=== PATIENT | female | born 1960 | race Caucasian/White ===

== ENCOUNTER 2021-05-03 01:47 | Day surgery (SDC) | payer BC, SELFPAY ==
[2021-04-27 14:46] VITALS: BMI 22.7
--- NOTE | 2021-04-27 14:54 | PC.NURSE ---
Report to the Outpatient Waiting Room, entrance under the green pavilion located off [facility], at time 0600_ on date _05/03/21 . OR Time: . - You and your visitor will be asked a series of questions to screen for COVID 19 for your protection. - A mask is required within the hospital. Preoperative COVID Testing Requirements: No COVID Test needed if: (proof is required; if not received patient will have Rapid Test prior to entry) - Patient has received COVID Vaccine at least 14 days prior to procedure date or - Patient has positive COVID test result within last 90 days of surgery date. COVID Test needed if above criteria is not met If not COVID vaccinated a COVID test must be conducted within 72 hours of surgery and patient is asked to isolate self from time of testing until procedure. You will go to the [facility] for your COVID testing. The [facility] is located at the corner of [address] [facility]. You will only be called if COVID results are positive and your surgeon may reschedule your elective surgery date. Patients may have clear liquids (water, carbonated beverages, clear teas, apple juice) until 3 hours prior to surgery with a maximum of 20 ounces. - No food from midnight until time of surgery - Infants may have breast milk until 4 hours before surgery, formula 6 hours prior to surgery. - Children will be allowed to drink immediately following surgery. If applicable, please bring a bottle or sippy cup to assist with drinking. Juice, water, soda, and popsicles are readily available. For infants on formula, please bring formula the day of surgery. Pacifiers are allowed. Take the following medications with a SIP of water the morning of surgery: __GEODON, CITALOPRAM Medications to discontinue per physician VIT. SUPPLEMENTS Date to take last dose 22/09/21 Please no make-up, nail uzbek, hairspray, perfume, deodorant, or body powder the day of surgery. No jewelry (including any body piercings) or valuables the day of surgery, leave them at home. Please take a shower or bath the night before, or the morning of, surgery with an antibacterial soap. Wear comfortable, loose fitting clothing. Children are encouraged to wear pajamas. - Jewelry must be removed prior to entering the operating room. Rings and piercings that are not removed may be cut off. - The hospital will not accept responsibility for valuables. - Please leave all valuables, including medications, at home the day of surgery. If you are going home after surgery, a licensed drivers' cash clerk must drive you home. - NO public transportation without another adult. - We recommend that an adult stay with you for 24 hours following discharge. - We also recommend that you do not drive, make important decision, drink alcoholic beverages, or take any drugs that were not prescribed by your health care provider for at least 24 hours after your discharge time. For Pediatric surgeries, we recommend two adults accompany the child home (only one inside the building at this time). One visitor will be allowed to accompany the patient into the hospital. Patients visitor will be instructed to remain with patient at all times or leave the building. We will allow the visitor to come back to the postoperative area when patient is ready. Follow any additional instructions given to you from your surgeon. Telephone instructions given to PATIENT and asked if any additional questions and then verbalized understanding. Patient advised to call surgeon office or pre surgery nurse liaison [phone] if any additional questions.
--- NOTE | 2021-05-02 12:24 | P.PNAN_ITS ---
Anes - Initial Pre Proc Eval Procedure: Operation Date: 05/03/21 07:30 Proposed Procedures p Hysteroscopy Dilation and Curettage - Virgilio Mitchell MD Date/Time: 05/02/21 12:24 Surgeon: Virgilio Mitchell MD Pre Op Diagnosis: post menopausal bleeding Patient Data Age: 60 Gender: F Height: 1.65 m Weight: 62 kg Allergies Allergy/AdvReac Type Severity Reaction Status Date / Time No Known Allergies Allergy Verified 04/27/21 14:39 Home Medications Medication Instructions Recorded Confirmed Type citalopram 10 mg PO DAILY 04/27/21 05/03/21 History ergocalciferol (vitamin D2) 50,000 unit PO WEEKLY 04/27/21 05/03/21 History omega 4-onx-izv-fish-turmeric 1,500 cap PO DAILY 04/27/21 04/27/21 History [[place] MonoPure Curcumin EC] sodium chloride [Hussain 128] 1 drp EACH EYE BID 04/27/21 05/03/21 History ziprasidone HCl 80 mg PO DAILY 04/27/21 05/03/21 History acetaminophen 1,000 mg PO Q6H PRN 05/03/21 05/03/21 History Patient hx anesthesia problems: none Family hx anesthesia problems: none Results Review: All pre-operative results and documents have been reviewed as part of the pre-operative evaluation. [facility] Past Medical History Medical History (Updated 05/02/21 @ 12:25 by Randolph Jiménez MD) Anxiety Breast CA Depression Social History Social History Smoking packs per day: 0.5 Smoking cigarettes per day: 10.0 Years smoked: 10 Smoking pack-years: 5.00 Smoking status: Former smoker Alcohol intake: former Living arrangements: alone Anes - Eval Final PreProcedure Day of Procedure 05/02/21 12:24 Patient weight: normal Heart: regular rate and rhythm Lungs: clear to auscultation and normal air movement Airway: Mallampati scale class II Neurological: alert and oriented Last oral intake: >/= 8 hours ASA classification: III Emergent: no Anesthetic plan: proceed Anesthesia type and monitoring: general GIVS and LMA Results Review: All pre-operative results and documents have been reviewed as part of the pre-operative evaluation. Informed Consent: The patient's anesthetic plan and its attendant risks and benefits were discussed with the patient/family/POA. Questions were solicited and answers provided to the satisfaction of the patient/family/POA.
[2021-05-03 06:26] VITALS: BP 125/86; PULSE 68; RESP 20; TEMP 36.2; O2SAT 99
[2021-05-03] MEDS: LACTATED RINGERS 1,000 ML 30 ML IV CONT (07:00)
--- NOTE | 2021-05-03 07:04 | P.HP_ITS ---
H&P: HPI History of Present Illness Date/Time: 05/03/21 07:04 60-year-old female presents for evaluation irregular vaginal bleeding. She had bleeding episodes over the past few months after being menopausal many years. Has also been on tamoxifen for breast cancer which also was stopped within the last year. Has no other pain or discomfort. Ultrasound does reveal slightly thickened endometrial cavity with multiple fibroids. Chief Complaint: Postmenopausal bleeding Review of Systems Review of Systems: All systems reviewed & are unremarkable except as noted in HPI and below PMFSH Past Medical History Medical History Anxiety Breast CA Depression Social History Social History Smoking packs per day: 0.5 Smoking cigarettes per day: 10.0 Years smoked: 10 Smoking pack-years: 5.00 Smoking status: Former smoker Alcohol intake: former Living arrangements: alone Meds Home Medications and Allergies Home Medications Medication Instructions Recorded Confirmed Type citalopram 10 mg PO DAILY 04/27/21 05/03/21 History ergocalciferol (vitamin D2) 50,000 unit PO WEEKLY 04/27/21 05/03/21 History omega 3-kaq-wby-fish-turmeric 1,500 cap PO DAILY 04/27/21 04/27/21 History [[place] MonoPure Curcumin EC] sodium chloride [Hussain 128] 1 drp EACH EYE BID 04/27/21 05/03/21 History ziprasidone HCl 80 mg PO DAILY 04/27/21 05/03/21 History acetaminophen 1,000 mg PO Q6H PRN 05/03/21 05/03/21 History Allergies Allergy/AdvReac Type Severity Reaction Status Date / Time No Known Allergies Allergy Verified 04/27/21 14:39 Exam Const: General: cooperative, healthy appearing and comfortable Resp: Effort & Inspection: normal respiratory effort Auscultation: clear to auscultation bilaterally Cardio: Rate: regular rate Rhythm: regular rhythm GI: Inspection: normal to inspection Auscultation: normal bowel sounds : Speculum Exam - Vagina: normal appearance of the vagina Speculum Exam - Cervix: normal appearance of the cervix Bimanual exam- vagina & uterus: enlarged (8-10 week size with mild uterine prolapse) Bimanual Exam- Adnexa, other: normal adnexae Assessment and Plan Assessment and plan (1) Postmenopausal bleeding: Code(s): N95.0 - Postmenopausal bleeding Status: Acute (2) Endometrial thickening on ultrasound: Code(s): R93.89 - Abnormal findings on diagnostic imaging of other specified body structures Status: Acute (3) Uterine fibroid: Code(s): D25.9 - Leiomyoma of uterus, unspecified Status: Acute Additional Plan Proceed with hysteroscopy with uterine curettings. Long-range plan based on pathology from this test.
--- NOTE | 2021-05-03 07:07 | WPDHPUPDATE1 ---
History and Physical Update Update Date/Time: 05/03/21 07:07 History and Physical has been reviewed, including an updated exam of the patient. There are NO changes in the patient's condition. Risks, benefits, and alternatives have been discussed and questions answered. Patient agrees to proceed with procedure.
[2021-05-03] MEDS: KETOROLAC 15 MG/ML VIAL (*BKC) IV PUSH (07:45)
[2021-05-03 07:54] VITALS: BP 84/56; PULSE 56; RESP 12; O2SAT 98
[2021-05-03 08:25] VITALS: BP 111/65; PULSE 53; RESP 12
--- NOTE | 2021-05-03 08:32 | P.OPB_ITS ---
Procedure Note - Brief Procedure Note - Brief Date of procedure: 05/03/21 Pre-op diagnosis: post menopausal bleeding 1. Postmenopausal bleeding 2. Endometrial thickening Post-op diagnosis: Same (3. Endometrial polyp ) Procedure performed: 1. Hysteroscopy 2. Hysteroscopic polypectomy 3. Hysteroscopic curettings Description of procedure: Patient was prepped in usual manner for this proce dure. Cervix dilated to allow the hysteroscope to place was did reveal polyp on the anterior portion of the uterine wall and tissue thickening on the posterior wall. TruClear instrument was then placed and using the shaver polyp and the thickening was removed. At the end of the procedure the endometrial cavity was smooth regular and without any abnormalities. Anesthesia: MAC Surgeon: Virgilio Mitchell MD Estimated blood loss (mL): 0 Drains: No Packing: No Pathology: Yes Complications: No immediate complications Condition: Stable Disposition: PACU Findings: 1. Endometrial polyp 2. Endometrial thickening
== END 2021-05-03 09:00 | disposition home or self-care (01) ==
PROVIDERS: PCP Family Medicine; Visit Provider Obstetrics & Gynecology
PROC: 0U5B8ZZ Destruction of Endometrium, Via Natural or Artificial Opening Endoscopic (ICD-10-PCS; CPT 58563; principal; 2021-05-03 07:30)
DX: N95.0 Postmenopausal bleeding (principal); N84.0 Polyp of corpus uteri; F41.8 Other specified anxiety disorders; Z85.3 Personal history of malignant neoplasm of breast; Z87.891 Personal history of nicotine dependence
CPT/HCPCS: 58558; 88305; A9270; J1100; J1885; J2250; J2405; J2704; J3010; J7030; J7120